=== PATIENT | female | born 1970 | race African-American/Black ===

== ENCOUNTER 2022-12-10 16:48 | Emergency (ER) | payer OTHER ==
[~2022-12-10] VITALS: Ht 167.6 cm; Wt 70.3 kg
[2022-12-10 17:30] VITALS: BP_SYST 145
[2022-12-10 17:43] LABS: BASOPHILS # (AUTO) 0.1 K/uL (0.0-0.2); BASOPHILS % (AUTO) 0.9 % (0.0-2.0); EOSINOPHILS # (AUTO) 0.2 K/uL (0.0-0.4); EOSINOPHILS % (AUTO) 3.5 % (0.0-4.0); LYMPHOCYTES # (AUTO) 1.6 K/uL (1.0-5.5); LYMPHOCYTES % (AUTO) 26.1 % (20.5-51.5); MEAN CORPUSCULAR HEMOGLOBIN 27 pg (27-31); MEAN CORPUSCULAR HGB CONC 33 % (32-36); MEAN CORPUSCULAR VOLUME 81 fL (79.0-98.0); MONOCYTES # (AUTO) 0.6 K/uL (0.0-1.0); MONOCYTES % (AUTO) 10.3 % (1.7-9.3); NEUTROPHILS # (AUTO) 3.6 K/uL (1.8-7.7); NEUTROPHILS % (AUTO) 59.2 % (40.0-70.0); PLATELET COUNT (AUTO) 140 K/uL (130-430); RED BLOOD CELL COUNT(AUTO) 4.07 MIL/uL (4.2-6.2); RED CELL DISTRIBUTION WIDTH 16.5 % (9.0-15.0); WHITE BLOOD COUNT (AUTO) 6.1 K/uL (4.8-10.8)
[2022-12-10 17:53] LABS: ANION GAP 8 (5-15); CALCIUM 8.8 mg/dL (8.4-11.0); CHLORIDE 104 mmol/L (98-107); CREATININE 0.88 mg/dL (0.55-1.30); GFR AFRICAN AMERICAN 87 mL/min (>90); GLUCOSE 109 mg/dL (70-99); UREA NITROGEN, BLOOD 8 mg/dL (8-21)
[2022-12-10 18:02] LABS: ALANINE AMINOTRANSFERASE 21 U/L (12-78); ALBUMIN 3.8 g/dL (3.4-4.8); ASPARTATE AMINOTRANSFERASE 16 U/L (10-37); TOTAL BILIRUBIN 0.3 mg/dL (0.0-1.0)
[2022-12-10] MEDS ORDERED: IBUPROFEN 800 MG TABLET PO ONE (18:30)
[2022-12-10 19:31] VITALS: BP_SYST 134
== END 2022-12-10 20:08 | disposition home or self-care (01) ==
LOC: SED 16:48
DX: R07.89 Other chest pain (principal); Z86.79 Personal history of other diseases of the circulatory system; Z79.899 Other long term (current) drug therapy; Z20.822 Contact with and (suspected) exposure to COVID-19
CPT/HCPCS: 36415; 80053; 83880; 84443; 84484; 85025; 93005; 99284

== ENCOUNTER 2024-03-31 11:24 | Emergency (ER) | payer OTHER ==
[~2024-03-31] VITALS: Ht 180.3 cm; Wt 63.5 kg
[2024-03-31 11:28] VITALS: BP_SYST 177; PULSE 60; RESP 20; TEMP 98.3; O2SAT 98
[2024-03-31] MEDS: IBUPROFEN 600 MG TABLET PO ONE (12:38)
[2024-03-31] MEDS ORDERED: HYDR-3917 PO (12:52)
[2024-03-31] MEDS ORDERED: PENI250T2 PO (12:52)
[2024-03-31] MEDS ORDERED: IBUP-1969 PO (12:52)
[2024-03-31 13:02] VITALS: BP_SYST 177; PULSE 60; RESP 20; TEMP 98.3; O2SAT 98
== END 2024-03-31 13:02 | disposition home or self-care (01) ==
LOC: SED 11:24
DX: K04.7 Periapical abscess without sinus (principal)
CPT/HCPCS: 99283